=== PATIENT | female | born 1945 | race Caucasian/White ===

== ENCOUNTER → 2016-12-23 | Outpatient (CLI) | payer MEDICARE, BC | END | disposition home or self-care (01) | LOC: RAD.S 08:40 | PROC: 0HBV3ZX Excision of Bilateral Breast, Percutaneous Approach, Diagnostic (ICD-10-PCS; principal; 2016-12-23) | DX: C50.411 Malignant neoplasm of upper-outer quadrant of right female breast (principal); N60.92 Unspecified benign mammary dysplasia of left breast; Z17.0 Estrogen receptor positive status [ER+] ==

== ENCOUNTER 2017-01-10 07:16 | Day surgery (SDC) | payer MEDICARE, BC ==
[~2017-01-10] VITALS: Ht 170.2 cm; Wt 115.6 kg
--- NOTE | 2017-01-12 10:10 | OR ---
ADMIT: 01/10/2017 RM/LOC: [facility] MR#: [id number] [id number] [address] [place] [id number] [place] [address] Operative/Delivery Room Report SEX: F AGE: 71 : 1945 SURGERY DATE: 01/10/2017 SURGEON: Jude Aburto MD PREOPERATIVE DIAGNOSES: 1. Atypical ductal hyperplasia of the left breast. 2. Right invasive ductal carcinoma. POSTOPERATIVE DIAGNOSES: 1. Atypical ductal hyperplasia of the left breast. 2. Right invasive ductal carcinoma. PROCEDURE: 1. Left wire-localized lumpectomy. 2. Right wire localized lumpectomy. 3. Right axillary sentinel lymph node biopsy. QUANTITATIVE RESEARCHER: MATTIE William, whose assistance was necessary for tissue retraction. ANESTHESIA: General endotracheal. ESTIMATED BLOOD LOSS: 25 mL. DESCRIPTION OF PROCEDURE: The patient was taken to the operating room and placed supine on the operating room table. General anesthesia was established. Both breasts and the right axilla were prepped and draped in the standard surgical fashion. A curvilinear incision was made at the areolar border of the upper outer quadrant of the left breast. This incorporated the wire localizer at this site. The breast tissue approximately 3 cm in diameter was then excised around the wire down beyond its tip and sent as tissue for mammographic evaluation. The prior biopsy clip was in the excised tissue. The wound was irrigated with no bleeding. The deep tissue was closed with 2-0 Vicryl suture. Skin edges were approximated with 4-0 Monocryl in a subcuticular fashion and Dermabond. Next, 3 mL of isosulfan blue dye was injected in a retroareolar position of the right breast. Tissue massage was performed for 5 minutes to allow lymphatic uptake. The radioactive area in the right axilla was then identified. A transverse incision was made overlying the axillary content. Dissection proceeded through the subcutaneous tissue into the axilla. Upon doing so, there were 2 separate small blue lymph nodes identified with blue lymphatic channels tracking to them. These were both radioactive also. These were carefully dissected and excised. The first identified node was labeled as sentinel lymph node #1 and had an ex vivo Neoprobe count of 600. The second node was labeled as sentinel lymph node #2, had an ex vivo count of 43. Background count showed minimal radioactivity, less than 10% of ex vivo counts of the nodes. There was no bleeding in the axilla. The deep tissue was closed with 2-0 Vicryl suture. Skin edges were approximated with 4-0 Monocryl in a subcuticular fashion and Dermabond. Next, a curvilinear incision was made in the upper outer quadrant of the right ADMIT: 01/10/2017 RM/LOC: [facility] MR#: [id number] [place] [id number] [place] [address] [place] [address] Operative/Delivery Room Report SEX: F AGE: 71 : 1945 breast overlying the mass. The wire localizer was incorporated into the wound. The mass and wire localizer were then excised circumferentially to grossly 0.5 to 1 cm negative margins circumferentially. No palpable abnormality was present at the margin or in the remainder of the wound. The tissue was marked with a short stitch superiorly and a long stitch laterally. This was sent for tissue mammography as well. This showed the tumor and biopsies area in the excised tissue. Cautery was used for hemostasis. The deep tissue was closed with 3-0 Vicryl suture. Skin edges were approximated with 4-0 Monocryl in a subcuticular fashion and Dermabond. Local anesthetic was injected and dressings were applied. Sponge, needle, and instrument counts were correct at the end of the case. The patient tolerated the procedure well and transferred to the recovery area in stable condition. Jude Aburto MD/ sangeetha JOB #: [id number] CC: Jude Aburto, Attending Physician Atul Rojas, Family Physician
== END 2017-01-10 15:02 | disposition home or self-care (01) ==
LOC: SSS 07:16 → EDSTATUS 09:00 → SSS 09:00 → RAD.S 09:00 → SSS 15:02
PROC: 07B50ZX Excision of Right Axillary Lymphatic, Open Approach, Diagnostic (ICD-10-PCS; principal; 2017-01-10)
PROC: 0HBV0ZZ Excision of Bilateral Breast, Open Approach (ICD-10-PCS; principal; 2017-01-10)
DX: C50.912 Malignant neoplasm of unspecified site of left female breast (principal); C50.911 Malignant neoplasm of unspecified site of right female breast; I10 Essential (primary) hypertension; E66.9 Obesity, unspecified; M19.90 Unspecified osteoarthritis, unspecified site; Z17.0 Estrogen receptor positive status [ER+]; E07.9 Disorder of thyroid, unspecified; Z86.718 Personal history of other venous thrombosis and embolism; Z79.899 Other long term (current) drug therapy; Z88.8 Allergy status to other drugs, medicaments and biological substances; Z98.890 Other specified postprocedural states; Z96.659 Presence of unspecified artificial knee joint; Z79.01 Long term (current) use of anticoagulants

== ENCOUNTER 2017-01-24 07:02 | Day surgery (SDC) | payer MEDICARE, BC ==
[~2017-01-24] VITALS: Ht 170.2 cm
--- NOTE | 2017-01-27 09:47 | OR ---
ADMIT: 01/24/2017 RM/LOC: [facility] MR#: [id number] [address] [address] [place] [id number] [place] [address] Operative/Delivery Room Report SEX: F AGE: 71 : 1945 SURGERY DATE: 01/24/2017 SURGEON: Jude Aburto MD PREOPERATIVE DIAGNOSES: 1. Right invasive breast cancer with close lumpectomy margin. 2. Invasive left breast cancer. POSTOPERATIVE DIAGNOSES: 1. Right invasive breast cancer with close lumpectomy margin. 2. Invasive left breast cancer. PROCEDURE: 1. Left axillary sentinel lymph node biopsy. 2. Re-excision of right posterior lumpectomy margin. ANIMAL HOSPITAL CLERK: MATTIE William, whose assistance was necessary for tissue retraction. ANESTHESIA: General endotracheal. ESTIMATED BLOOD LOSS: 10 mL. DESCRIPTION OF PROCEDURE: The patient was taken to the operating room and placed supine on the operating room table. General anesthesia was established. A 3 mL of isosulfan blue dye was injected peritumorally in the left breast and breast tissue massage was performed for 5 minutes to allow lymphatic uptake. The breasts and axilla were prepped and draped bilaterally in the standard surgical fashion. The radioactive area in the left axilla was identified. A curvilinear incision was made overlying this and carried through the subcutaneous tissue to the axillary content. The first sentinel node was identified, was radioactive, but did not have blue dye lymphatic in it. This was dissected circumferentially and excised with an ex vivo count of 24. Inspection of the remainder of the axilla revealed a second radioactive node, which was blue in appearance from the isosulfan. This was dissected circumferentially, excised as sentinel lymph node #2. The ex vivo count was 4 on this. There was no background or residual radioactivity in the axilla. The wound was irrigated. The deep tissue was closed with 3-0 Vicryl suture. Skin edges were approximated with 4-0 Monocryl in a subcuticular fashion and Dermabond. ADMIT: 01/24/2017 RM/LOC: [facility] MR#: [id number] [address] [address] [place] [address] [place] [address] Operative/Delivery Room Report SEX: F AGE: 71 : 1945 Next, the right lumpectomy incision was incised. The seroma was evacuated. Inspection of the lumpectomy revealed no palpable residual abnormality and appeared to be healing well. The posterior margin was then excised in its entirety with cautery. This did extend completely to pectoralis fascia. No residual posterior tissue was present after excision. The remainder of the wound was hemostatic and was irrigated. The deep tissue was closed with 3-0 Vicryl suture. Skin edges were approximated with 4-0 Monocryl in a subcuticular fashion and Dermabond. Local anesthetic was injected at the incisions. Sponge, needle, and instrument counts were correct at the end of the case. The patient tolerated the procedure well and transferred to the recovery area in stable condition. Jude Aburto MD/ sangeetha JOB #: [id number] CC: Jude Aburto, Attending Physician Atul Rojas, Family Physician
== END 2017-01-24 11:50 | disposition home or self-care (01) ==
LOC: SSS 07:02 → EDSTATUS 08:00 → RAD.S 08:00 → SSS 11:50
PROC: 0HBT0ZZ Excision of Right Breast, Open Approach (ICD-10-PCS; principal; 2017-01-24)
PROC: 07B60ZX Excision of Left Axillary Lymphatic, Open Approach, Diagnostic (ICD-10-PCS; principal; 2017-01-24)
DX: C50.912 Malignant neoplasm of unspecified site of left female breast (principal); M19.90 Unspecified osteoarthritis, unspecified site; Z98.49 Cataract extraction status, unspecified eye; Z88.8 Allergy status to other drugs, medicaments and biological substances; Z98.890 Other specified postprocedural states

== ENCOUNTER 2017-02-10 09:33 | Day surgery (SDC) | payer MEDICARE, BC ==
[~2017-02-10] VITALS: Ht 170.2 cm
--- NOTE | 2017-02-22 11:26 | OR ---
ADMIT: 02/10/2017 RM/LOC: [facility] MR#: [id number] [id number] [address] [place] [address] [place] [address] Operative/Delivery Room Report SEX: F AGE: 71 : 1945 SURGERY DATE: 02/10/2017 SURGEON: Vladimir Mcbride MD PREOPERATIVE DIAGNOSIS: Breast cancer, need for Ckktel-Y-Toea for chemotherapy. POSTOPERATIVE DIAGNOSIS: Breast cancer, need for Ttbaou-M-Fhdu for chemotherapy. PROCEDURE PERFORMED: Right internal jugular PowerPort placement with ultrasound and fluoro. ANESTHESIA: General endotracheal. ESTIMATED BLOOD LOSS: Less than 10 mL. DESCRIPTION OF PROCEDURE: After appropriate informed consent was obtained, the patient was brought to the operating room. General endotracheal anesthesia was induced. The patient's chest bilaterally was prepped and draped in a sterile fashion including a sterile Ioban drape. Lidocaine 1% was injected in the skin and deep tissues directly over the large right internal jugular vein. A small incision was made there. An 18-gauge Cook needle on a syringe was used to access this right internal jugular vein under Real-time ultrasound guidance. A picture was taken for the patient's permanent record. I had good return of dark red, nonpulsatile blood. Guidewire was passed easily and confirmed to be in the superior vena cava with fluoro. Additional local was injected in the skin deep tissues of the right upper chest wall. An incision was created. The subcutaneous pocket was created. The tubing was then tunneled from the reservoir site up to the neck incision site. A split sheath dilator was then passed over the wire under fluoro guidance. The wire and dilator were removed. Tubing was then passed down through the split ADMIT: 02/10/2017 RM/LOC: [facility] MR#: [id number] [address] [address] [place] [address] [place] [address] Operative/Delivery Room Report SEX: F AGE: 71 : 1945 sheath. Then, the split sheath was removed. The tubing was pulled back until the tip resided in the atriocaval junction. The tubing was cut at approximately 23 cm, attached to PowerPort reservoir, and locked into place. The reservoir was then accessed, aspirated, and flushed easily. It was then flushed with heparinized saline. Again, the port was sewn down to the chest wall fascia using a couple of 0 Ethibond sutures. The wound was then closed with 3-0 Vicryl in the dermal layer and running 4-0 Monocryl in the subcuticular layer. Sterile dressings were then applied. The patient tolerated the procedure well and was taken to the recovery room in stable condition. Vladimir Mcbride MD/ sangeetha JOB #: [id number] CC: Vladimir Mcbride, Attending Physician Atul Rojas, Family Physician Jude Aburto MD
== END 2017-02-10 13:39 | disposition home or self-care (01) ==
LOC: SSS 09:33
PROC: B543ZZA Ultrasonography of Right Jugular Veins, Guidance (ICD-10-PCS; principal; 2017-02-10)
PROC: B513YZA Fluoroscopy of Right Jugular Veins using Other Contrast, Guidance (ICD-10-PCS; principal; 2017-02-10)
PROC: 05HM33Z Insertion of Infusion Device into Right Internal Jugular Vein, Percutaneous Approach (ICD-10-PCS; principal; 2017-02-10)
DX: C50.911 Malignant neoplasm of unspecified site of right female breast (principal); I10 Essential (primary) hypertension; Z88.8 Allergy status to other drugs, medicaments and biological substances; Z79.899 Other long term (current) drug therapy; Z96.653 Presence of artificial knee joint, bilateral; Z98.49 Cataract extraction status, unspecified eye